=== PATIENT | female | born 1995 | race Two or more races ===

== ENCOUNTER 2024-10-02 18:48 | Emergency (ER) | payer OTHER ==
[~2024-10-02] VITALS: Ht 162.6 cm; Wt 63.5 kg
[2024-10-02 19:00] VITALS: BP 150/87; PULSE 132; RESP 18; O2SAT 97
--- NOTE | 2024-10-02 20:10 | DVH ---
OB ULTRASOUND <14 WEEKS: HISTORY: hr check TECHNIQUE: Multiple real-time grayscale sonographic images of the pelvis with duplex Doppler color f low, spectral and M-mode analysis. TRANSDUCERS: Transabdominal and transvaginal FINDINGS: The uterus measures 8.4 x 7.8 by 5.2 cm. There is an IUP noted in the endometrial canal. Right ovary measures 1.5 8 x 1.15 x 1.25 cm. Volume of the right ovary is 1.19 cc. with normal Dopple r color flow Left ovary measures 1.94 x 2.14 x 2.60 cm volume of the left ovary is 4.34 cc. There is a anechoic le raji in the left ovary measuring 1.6 x 1.6 x 1.8 cm. with normal Doppler color flow IUP single live fetus at 9 weeks 0 days average ultrasound age based on mean crown-rump length of 1.8 5 cm and gestational sac size of 9 weeks 4 days cm heart rate detected at 0 beats per minute. IMPRESSION: 1. IUP single fetus 9 weeks AUA. 2. No heart rate seen. 3. Small subchorionic hemorrhage. 4. Small left ovarian cyst.
--- NOTE | 2024-10-02 20:58 | ED.PDOC ---
NIGHT SHIFT MANAGER HPI Comments 29-year-old female states she was referred to emergency department by óscar strange. Patient states she went for an ultrasound at a private ultrasound facility. Patient states she was 10 weeks this is her 1st . At the ultrasound appointment she was told they could not detect a heartbeat. Patient denies any cramping denies any vaginal bleeding. Has not had OB appointment yet as she was moving from the [facility]. Has not been able to make an appointment. Patient had previous ultrasound appointment two weeks ago which she was told everything was normal. Chief Complaint: Time Seen by MD: 18:54 Reviewed Notes: Nurses Notes Information Source: Patient Past Medical History PAST MEDICAL HISTORY: Denies Surgical History: Denies all surgeries LEARNING OFFICER History: No Pertinent LEARNING OFFICER History Constitutional: denies: chills, diaphoresis, fatigue, fever, malaise, sweats, weakness, others EENTM: denies: blurred vision, double vision, ear bleeding, ear discharge, ear drainage, ear pain, ear ringing, eye pain, eye redness, hearing loss, mouth pain, mouth swelling, nasal discharge, nose bleeding, nose congestion, nose pain, photophobia, tearing, throat pain, throat swelling, voice changes, others Respiratory: denies: cough, hemoptysis, orthopnea, SOB at rest, shortness of breath, SOB with excertion, stridor, wheezing, others Cardiovascular: denies: chest pain, dizzy spells, diaphoresis, Dyspnea on exertion, edema, irregular heart beat, left arm pain, lightheadedness, palpitations, PND, syncope, others Gastrointestinal: denies: abdomen distended, abdominal pain, blood streaked bowels, constipated, diarrhea, dysphagia, difficulty swallowing, hematemesis, melena, nausea, poor appetite, poor fluid intake, rectal bleeding, rectal pain, vomiting, others Genitourinary: denies: abnormal vagina bleeding, burning, dyspareunia, dysuria, flank pain, frequency, hematuria, incontinence, pain, , vagina discharge, urgency, others Neurological: denies: dizziness, fainting, headache, left sided numbness, left sided weakness, numbness, paresthesia, pre-existing deficit, right sided numbness, right sided weakness, seizure, speech problems, tingling, tremors, weakness, others Musculoskeletal: denies: back pain, gout, joint pain, joint swelling, muscle pain, muscle stiffness, neck pain, others Integumetry: denies: bruises, change in color, change in hair/nails, dryness, laceration, lesions, lumps, rash, wounds, others Allergic/Immunocompromised: denies: Difficulty Healing, Frequent Infections, Hives, Itching, others Hematologic/Lymphatic: denies: anemia, blood clots, easy bleeding, easy bruising, swollen glands, others Physical Exam General Appearance: No Apparent Distress, Normal HEENT: Normal ENT Inspection, Pharynx Normal, TMs Normal Neck: Full Range of Motion, Non-Tender, Normal, Normal Inspection Respiratory: Chest Non-Tender, Lungs Clear, No Accessory Muscle Use, No Respiratory Distress, Normal Breath Sounds Cardiovascular: No Edema, No JVD, No Murmur, No Gallop, Normal Peripheral Pulses, Regular Rate/Rhythm Breast Exam: Deferred Gastrointestinal: No Organomegaly, Non Tender, No Pulsatile Mass, Normal Bowel Sounds, Soft Genitalia: Deferred Pelvic: Deferred Rectal: Deferred Extremities: No calf tenderness, Normal capillary refill, Normal inspection, Normal range of motion, Non-tender, No pedal edema Musculoskeletal : Apperance: Normal Neurologic: Alert, cdl flatbed truck driver II-XII nml as Tested, No Motor Deficits, Normal Affect, Normal Mood, No Sensory Deficits Cerebellar Function: Normal Reflexes: Normal Skin: Dry, Normal Color, Warm Lymphatic: No Adenopathy Was a procedure done? Was a procedure done?: No Differential Diagnosis (LEARNING OFFICER) Vaginal Bleeding: - Complete, - Incomplete, - Inevitable, - Missed, - Threatened X-Ray, Labs, Meds, VS Vital Signs Date Time Temp Pulse Resp B/P (MAP) Pulse Ox O2 Delivery O2 Flow Rate FiO2 10/02/24 19:00 97.5 132 18 150/87 (108) 97 Lab Test 10/02/24 19:16 Range/Units Beta HCG, Quantitative 46831.7 H 1.5-4.2 mIU/mL X-Ray, Labs, Meds, VS Comment Spoke with VIVIANA Dewitt on-call. He recommends follow up this week outpatient clinic with director. Time of 1ST Reevaluation: 21:02 Reevaluation 1ST: Unchanged Patient Education/Counseling: Diagnosis, Treatment, Need For Follow Up (Follow up with OBGYN this week.) Family Education/Counseling: Diagnosis, Treatment Departure 1 Departure Time of Disposition: 20:54 Impression: Primary Impression: demise due to miscarriage Disposition: 01 HOME / SELF CARE / HOMELESS Condition: Fair Discharged With: Self Critical Care Note Critical Care Time?: No Stability Stability form required: No Heart Score Heart Score: Heart Score Response (Comments) Value History N/A 0 EKG N/A 0 Age N/A 0 Risk Factors N/A 0 Troponin N/A 0 Total 0 VALENTE VOGEL NETWORK COORDINATOR Oct 02, 2024 20:58
== END 2024-10-02 21:00 | disposition home or self-care (01) ==
LOC: ER 18:52
DX: O03.9 Complete or unspecified spontaneous abortion without complication (principal); R10.2 Pelvic and perineal pain; Z3A.10 10 weeks gestation of pregnancy
CPT/HCPCS: 36415; 76801; 76817; 84702